=== PATIENT | female | born 1970 | race Caucasian/White ===

== ENCOUNTER 2020-05-13 12:16 | Emergency (ER) | payer OTHER ==
[2020-05-13 13:10] LABS: RED BLOOD COUNT 4.78 M/UL (4.00-5.10); WHITE BLOOD COUNT 7.5 K/UL (4.5-11.0)
[2020-05-13 13:29] LABS: BUN/CREATININE RATIO 16 (0-10)
[2020-05-13] MEDS ORDERED: IBU800 MG PO (14:36)
[2020-05-13] MEDS ORDERED: KEFLEX750 MG PO (14:36)
[2020-05-13] MEDS ORDERED: ZOFRAN ODT 4 MG4 MG PO (14:36)
[2020-05-13] MEDS ORDERED: PYRIDIUM200 MG PO (14:36)
== END 2020-05-13 15:07 | disposition home or self-care (01) ==
LOC: ER1 12:16
PROVIDERS: Nurse Practitioner
DX: N39.0 Urinary tract infection, site not specified (principal); E11.9 Type 2 diabetes mellitus without complications; I10 Essential (primary) hypertension; F17.210 Nicotine dependence, cigarettes, uncomplicated; Z90.49 Acquired absence of other specified parts of digestive tract; Z88.1 Allergy status to other antibiotic agents; Z79.899 Other long term (current) drug therapy; Z87.19 Personal history of other diseases of the digestive system; Z87.442 Personal history of urinary calculi; Z88.0 Allergy status to penicillin
CPT/HCPCS: 36415; 80053; 81001; 83605; 83690; 84703; 85025; 86140; 87077; 87086; 87186; 96365; 96375; 99284; J0696; J1885; J2405

== ENCOUNTER → 2020-06-10 | Outpatient (CLI) | payer OTHER ==
[~2020-06-10] MED LIST: HYDROXYZINE HCL25 MG PO; IBU800 MG PO; KEFLEX750 MG PO; NAPROSYN EC 50500 MG PO; NORFLEX 100 MG100 MG PO; PYRIDIUM200 MG PO; Voltaren Gel 1 % TOP; ZOFRAN ODT 4 MG4 MG PO
== END ==
LOC: EXRD 10:49
DX: J45.909 Unspecified asthma, uncomplicated (principal); R91.8 Other nonspecific abnormal finding of lung field; Z72.0 Tobacco use
CPT/HCPCS: 71046

== ENCOUNTER 2020-07-08 15:30 | Emergency (ER) | payer OTHER ==
[~2020-07-08 15:30] MED LIST changes: -HYDROXYZINE HCL25 MG PO; -NAPROSYN EC 50500 MG PO; -NORFLEX 100 MG100 MG PO; -Voltaren Gel 1 % TOP
[2020-07-08 16:19] LABS: HEMOGLOBIN 13.6 gm/dl (12.3-15.3); RED BLOOD COUNT 4.52 M/UL (4.00-5.10); WHITE BLOOD COUNT 4.1 K/UL (4.5-11.0)
[2020-07-08 16:46] LABS: BUN/CREATININE RATIO 21 (0-10)
[2020-07-08] MEDS ORDERED: NAPROSYN EC 50500 MG PO (19:00)
[2020-07-08] MEDS ORDERED: HYDROXYZINE HCL25 MG PO (19:05)
== END 2020-07-08 19:25 | disposition home or self-care (01) ==
LOC: ER1 15:30
PROVIDERS: Internal Medicine
DX: R07.89 Other chest pain (principal); R00.2 Palpitations; R06.02 Shortness of breath; R11.2 Nausea with vomiting, unspecified; I10 Essential (primary) hypertension; F17.210 Nicotine dependence, cigarettes, uncomplicated; Z90.49 Acquired absence of other specified parts of digestive tract; Z86.79 Personal history of other diseases of the circulatory system
CPT/HCPCS: 71046; 80053; 80307; 82550; 82553; 83874; 84439; 84443; 84484; 84703; 85025; 93005; 96374; 99285; J2405

== ENCOUNTER 2020-09-06 11:42 | Emergency (ER) | payer OTHER ==
[~2020-09-06 11:42] MED LIST changes: +HYDROXYZINE HCL25 MG PO; +NAPROSYN EC 50500 MG PO
[2020-09-06] MEDS ORDERED: NORFLEX 100 MG100 MG PO (14:15)
[2020-09-06] MEDS ORDERED: Voltaren Gel 1 % TOP (14:15)
== END 2020-09-06 14:28 | disposition home or self-care (01) ==
LOC: ER1 11:42
DX: R07.89 Other chest pain (principal); I10 Essential (primary) hypertension; F17.210 Nicotine dependence, cigarettes, uncomplicated; Z90.49 Acquired absence of other specified parts of digestive tract
CPT/HCPCS: 71111; 99283

== ENCOUNTER → 2020-10-10 | Outpatient (CLI) | payer OTHER ==
[~2020-10-10] MED LIST changes: +NORFLEX 100 MG100 MG PO; +PREDNISONE20 MG PO; +Voltaren Gel 1 % TOP
== END ==
LOC: HEART 5 10:00
DX: R07.9 Chest pain, unspecified (principal)
CPT/HCPCS: 93306

== ENCOUNTER 2020-10-15 16:33 | Emergency (ER) | payer OTHER ==
[~2020-10-15 16:33] MED LIST changes: -PREDNISONE20 MG PO
[2020-10-15 18:10] LABS: HEMOGLOBIN 12.9 gm/dl (12.3-15.3); RED BLOOD COUNT 4.19 M/UL (4.00-5.10)
[2020-10-15 18:26] LABS: BUN/CREATININE RATIO 15 (0-10)
[2020-10-15] MEDS ORDERED: PREDNISONE20 MG PO (21:42)
== END 2020-10-15 22:02 | disposition home or self-care (01) ==
LOC: ER1 16:33
PROVIDERS: Physician Assistant Medical
DX: R06.02 Shortness of breath (principal); R05 Cough; R07.9 Chest pain, unspecified; F17.210 Nicotine dependence, cigarettes, uncomplicated; Z20.822 Contact with and (suspected) exposure to COVID-19
CPT/HCPCS: 71045; 80053; 82550; 82553; 83605; 83874; 84484; 85025; 93005; 94664; 96374; 99285; J2930; U0002

== ENCOUNTER 2021-03-17 23:45 | Emergency (ER) | payer OTHER ==
[~2021-03-17 23:45] MED LIST changes: +PREDNISONE20 MG PO
[2021-03-18 06:08] LABS: HEMOGLOBIN 15.1 gm/dl (12.3-15.3); RED BLOOD COUNT 5.02 M/UL (4.00-5.10); WHITE BLOOD COUNT 5.4 K/UL (4.5-11.0)
[2021-03-18 06:20] LABS: BUN/CREATININE RATIO 22 (0-10)
[2021-03-18] MEDS ORDERED: IBUPROFEN600 MG PO (10:10)
== END 2021-03-18 10:38 | disposition home or self-care (01) ==
LOC: ER1 23:45
PROVIDERS: Physician Assistant
DX: M54.9 Dorsalgia, unspecified (principal); Z20.822 Contact with and (suspected) exposure to COVID-19; I10 Essential (primary) hypertension; Z90.49 Acquired absence of other specified parts of digestive tract; Z88.0 Allergy status to penicillin; F17.210 Nicotine dependence, cigarettes, uncomplicated; G43.909 Migraine, unspecified, not intractable, without status migrainosus
CPT/HCPCS: 71045; 72128; 80053; 81001; 82550; 82553; 83874; 84484; 85025; 87086; 93005; 96374; 99284; J1885; J7030; U0002

== ENCOUNTER → 2021-07-03 | Outpatient (CLI) | payer OTHER ==
[~2021-07-03] MED LIST changes: +IBUPROFEN600 MG PO
== END ==
LOC: KOH-I 13:15
DX: S92.514A Nondisplaced fracture of proximal phalanx of right lesser toe(s), initial encounter for closed fracture (principal); X58.XXXA Exposure to other specified factors, initial encounter
CPT/HCPCS: 73630